=== PATIENT | female | born 1950 ===

== ENCOUNTER 2017-06-02 18:27 | Emergency (ER) ==
[~2017-06-02] VITALS: Ht 160 cm; Wt 90.9 kg
[2017-06-02] MEDS ORDERED: TRAZ10TA GT (18:35)
[2017-06-02] MEDS ORDERED: PROZ40CA PO (18:35)
[2017-06-02] MEDS ORDERED: LOVA10TA PO (18:35)
[2017-06-02] MEDS ORDERED: AMBI10TA PO (18:35)
== END 2017-06-02 19:42 | disposition left against medical advice (07) ==
LOC: M ED 18:27
DX: M25.569 Pain in unspecified knee (principal); Z53.21 Procedure and treatment not carried out due to patient leaving prior to being seen by health care provider